=== PATIENT | female | born 1985 | race Caucasian/White ===

== ENCOUNTER 2020-11-29 07:50 | Emergency (ER) | payer OTHER ==
[~2020-11-29] VITALS: Ht 157.5 cm; Wt 99.8 kg
[~2020-11-29 07:50] MED LIST: CEPH500C16 PO; PREN-234 PO
[2020-11-29 07:54] VITALS: BP 138/83
--- NOTE | 2020-11-29 07:59 | NUR ---
PT AMBULATED TO BED 04.
[2020-11-29] MEDS ORDERED: ONDANSETRON 4 MG/2 ML VIAL IVP ONE (08:05)
[2020-11-29] MEDS ORDERED: NACL 0.9% 1,000 ML IV SCH (08:05)
--- NOTE | 2020-11-29 08:15 | NUR ---
PROVIDER AT BEDSIDE.
--- NOTE | 2020-11-29 08:15 | NUR ---
35Y/O FEMALE BIB SELF FOR C/C OF LLQ ABD PAIN THAT RADIATES TO THE LOWER BACK X3 DAYS AGO. C/O FEVER OF 102 LAST NIGHT. PT C/O NAUSEA BUT DENIES VOMITTING. SNEEZING AND COUGHING AGGREVATES ABD PAIN. LMP 07/16/2020 PT REPORTS MENSTRUAL IRREGLARITY NORMAL. DENIES VAGINAL PUSS AND DISCHARGE. HCG TEST WAS NEGATIVE. TTP ON LLQ. BED LOCKED AND LOWERED TO LOWEST POSITIONN, SIDE RAIL X1. 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 NKA PMH: HTN, HYPERLIPIDEMIA, DIVERTICULITIS RX: ATORVASTATIN, HTN RX SURGICAL HX: 2013
[2020-11-29 08:25] LABS: BASOPHILS % (AUTO) 0.3 % (0.0-2.0); EOSINOPHILS # (AUTO) 0.1 K/uL (0-0.4); EOSINOPHILS % (AUTO) 0.6 % (0.0-4.0); HEMATOCRIT 42.3 % (36-48); HEMOGLOBIN 14.2 g/dL (12.0-16.0); LYMPHOCYTES # (AUTO) 2.6 K/uL (2.5-16.5); LYMPHOCYTES % (AUTO) 21.4 % (20.5-51.1); MEAN CORPUSCULAR HEMOGLOBIN 28 pg (27-31); MEAN CORPUSCULAR HGB CONC 34 g/dL (33-37); MEAN CORPUSCULAR VOLUME 83.2 fL (80-94); MONOCYTES # (AUTO) 0.4 K/uL (0.8-1.0); MONOCYTES % (AUTO) 3.6 % (1.7-9.3); NEUTROPHILS # (AUTO) 8.9 K/uL (1.8-7.7); NEUTROPHILS % (AUTO) 74.1 % (42.2-75.2); PLATELET COUNT (AUTO) 274 K/uL (140-450); RED BLOOD CELL COUNT(AUTO) 5.08 MIL/uL (4.20-5.40); RED CELL DISTRIBUTION WIDTH 13.7 % (11.6-13.7)
[2020-11-29] MEDS ORDERED: KETOROLAC 15 MG/ML VIAL IVP ONE (08:25)
--- NOTE | 2020-11-29 08:41 | NUR ---
US AT BEDSIDE.
--- NOTE | 2020-11-29 08:45 | NUR ---
CT WITH CONTRAST CONSENT OBTAINED.
[2020-11-29 08:54] LABS: ALBUMIN 3.9 g/dL (3.4-5.0); ANION GAP 14.5 (8-16); CREATININE 0.7 mg/dL (0.6-1.3); POTASSIUM 3.5 mmol/L (3.5-5.1)
[2020-11-29 08:58] LABS: APPEARANCE,URINE CLEAR (CLEAR); BILIRUBIN,URINE NEGATIVE (NEGATIVE); BLOOD, URINE TRACE-I (NEGATIVE); COLOR,URINE YELLOW (YELLOW); LEUKOCYTE ESTERASE ,URINE NEGATIVE (NEGATIVE); NITRITE, URINE NEGATIVE (NEGATIVE); UGLUCOSE NEGATIVE (NEGATIVE)
[2020-11-29 09:06] LABS: TOTAL BILIRUBIN 1.2 mg/dL (0.0-1.0)
--- NOTE | 2020-11-29 09:17 | NUR ---
CALLED CT TO LET THEM KNOW PT IS READY FOR CT WITH CONTRAST EXAM OF THE ABD.
--- NOTE | 2020-11-29 09:23 | NUR ---
PT WENT TO CT VIA [facility].
--- NOTE | 2020-11-29 09:45 | NUR ---
PT BACK FROM CT, C/O UNCHANGING PAIN 01/20. PT REPORTS THE PAIN IS SHARP IN LLQ, DULL IN LLQ. PT REQUESTED MORE PAIN MEDICATION, ER MD NOTIFIED.
[2020-11-29] MEDS ORDERED: MORPHINE SULFATE 4 MG/ML SYR IVP ONE (09:50)
--- NOTE | 2020-11-29 10:30 | NUR ---
PT NEEDS MET AT THIS TIME, CALL LIGHT IN REACH. BED LOCKED IN LOWEST POSITION, BED RAIL X1. PT STATES PAIN HAS REDUCED FROM 5 TO 3. 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
[2020-11-29] MEDS ORDERED: ONDA4TAB PO (10:55)
[2020-11-29] MEDS ORDERED: AMOX-1000 PO (10:55)
[2020-11-29] MEDS ORDERED: ACET-8386 PO (10:55)
[2020-11-29] MEDS ORDERED: AMOXIL/CLAVULANATE 875/125 MG 1 TAB PO ONE (10:55)
[2020-11-29 11:23] VITALS: BP 120/78
--- NOTE | 2020-11-29 11:23 | NUR ---
Patient discharged with v/s stable. Written and verbal after care instructions given and explained. Patient alert, oriented and verbalized understanding of instructions. Ambulatory with steady gait. All questions addressed prior to discharge. ID band removed. Patient advised to follow up with PMD. Rx of NORCO AND AUGMENTIN, ZOFRAN given. Patient educated on indication of medication including possible reaction and side effects. Opportunity to ask questions provided and answered.
== END 2020-11-29 11:23 | disposition home or self-care (01) ==
LOC: MED 07:50
DX: K57.20 Diverticulitis of large intestine with perforation and abscess without bleeding (principal); N92.6 Irregular menstruation, unspecified; I10 Essential (primary) hypertension; E78.00 Pure hypercholesterolemia, unspecified
CPT/HCPCS: 36415; 74177; 76830; 76856; 80053; 81003; 81025; 83690; 84702; 85025; 96361; 96374; 96375; 99285; J1885; J2270; J2405; J7030; Q9967

== ENCOUNTER 2023-01-28 10:21 | Emergency (ER) | payer OTHER ==
[~2023-01-28] VITALS: Ht 160 cm; Wt 101.6 kg
[~2023-01-28 10:21] MED LIST changes: +ACET-8905 PO; +AMOX-1000 PO; +ONDA4TAB PO
[2023-01-28 10:29] VITALS: BP 132/91
--- NOTE | 2023-01-28 10:44 | NUR ---
AMBULATED TO BED IN NO DISTRESS.
[2023-01-28] MEDS ORDERED: NACL 0.9% 2,000 ML IV SCH (11:10)
[2023-01-28 11:29] LABS: BASOPHILS # (AUTO) 0.1 K/uL (0.00-0.22); BASOPHILS % (AUTO) 0.6 % (0.0-2.0); EOSINOPHILS # (AUTO) 0.1 K/uL (0-0.4); EOSINOPHILS % (AUTO) 0.9 % (0.0-4.0); HEMATOCRIT 40.6 % (36-48); HEMOGLOBIN 13.6 g/dL (12.0-16.0); LYMPHOCYTES # (AUTO) 2.4 K/uL (2.5-16.5); LYMPHOCYTES % (AUTO) 26.7 % (20.5-51.1); MEAN CORPUSCULAR HEMOGLOBIN 28 pg (27-31); MEAN CORPUSCULAR HGB CONC 34 g/dL (33-37); MEAN CORPUSCULAR VOLUME 83.3 fL (80-94); MONOCYTES # (AUTO) 0.4 K/uL (0.8-1.0); MONOCYTES % (AUTO) 4.2 % (1.7-9.3); NEUTROPHILS # (AUTO) 6.2 K/uL (1.8-7.7); NEUTROPHILS % (AUTO) 67.6 % (42.2-75.2); PLATELET COUNT (AUTO) 218 K/uL (140-450); RED BLOOD CELL COUNT(AUTO) 4.87 MIL/uL (4.20-5.40); RED CELL DISTRIBUTION WIDTH 14.3 % (11.6-13.7); WHITE BLOOD COUNT (AUTO) 9.1 K/uL (4.8-10.8)
[2023-01-28 11:35] LABS: APPEARANCE,URINE CLEAR (CLEAR); BILIRUBIN,URINE NEGATIVE (NEGATIVE); BLOOD, URINE TRACE-I (NEGATIVE); COLOR,URINE YELLOW (YELLOW); LEUKOCYTE ESTERASE ,URINE NEGATIVE (NEGATIVE); NITRITE, URINE NEGATIVE (NEGATIVE); UGLUCOSE NEGATIVE (NEGATIVE)
[2023-01-28 11:46] LABS: ALBUMIN 3.4 g/dL (3.4-5.0); ANION GAP 11.5 (8-16); ASPARTATE AMINOTRANSFERASE 14 U/L (15-37); CHLORIDE 102 mmol/L (98-107); CREATININE 0.7 mg/dL (0.6-1.3); GFR ARICAN-AMERICAN 122 mL/min (>90); GLUCOSE 164 mg/dL (74-106); POTASSIUM 3.5 mmol/L (3.5-5.1); SODIUM SERUM 139 mmol/L (136-145); UREA NITROGEN, BLOOD 10 mg/dL (7-18)
--- NOTE | 2023-01-28 12:15 | NUR ---
PT TO CT SCAN ABD/PELVIS WITH CONTRAST. VSS. NAD NOTED. WILL CONT TO MONITOR UPON RETURN.
[2023-01-28] MEDS ORDERED: ONDANSETRON 4 MG/2 ML VIAL IVP ONE (12:35)
[2023-01-28] MEDS ORDERED: MORPHINE SULFATE 4 MG/ML SYR IVP ONE (12:35)
[2023-01-28 12:43] LABS: RBC,URINE 0-5 /HPF (0-5)
[2023-01-28 12:44] LABS: CALCIUM OXALATE CRYSTALS,UR None Seen /HPF (None Seen); FINE GRANULAR CASTS,URINE None Seen /LPF (None Seen); HYALINE CASTS, URINE None Seen /LPF (None Seen); OTHER CASTS, URINE None Seen /LPF (None Seen); OTHER CRYSTALS,URINE None Seen /HPF (None Seen); RED BLOOD CELL CASTS,URINE None Seen /LPF (None Seen); TRICHOMONAS,URINE None Seen /HPF (None Seen); TRIPLE PHOSPHATE CRYSTAL,UR None Seen /HPF (None Seen); WAXY CASTS,URINE None Seen /LPF (None Seen); YEAST,URINE None Seen /HPF (None Seen)
[2023-01-28] MEDS ORDERED: AMOX-1230 PO (14:11)
[2023-01-28 15:04] VITALS: BP 126/84
--- NOTE | 2023-01-28 15:05 | NUR ---
Patient discharged with v/s stable. Written and verbal after care instructions given and explained. Patient alert, oriented and verbalized understanding of instructions. Ambulatory with steady gait. All questions addressed prior to discharge. ID band removed. Patient advised to follow up with PMD. Rx of AMOXICLAV given. Patient educated on indication of medication including possible reaction and side effects. Opportunity to ask questions provided and answered.
== END 2023-01-28 15:05 | disposition home or self-care (01) ==
LOC: MED 10:21
DX: K57.92 Diverticulitis of intestine, part unspecified, without perforation or abscess without bleeding (principal); I10 Essential (primary) hypertension; Z79.899 Other long term (current) drug therapy; Z98.890 Other specified postprocedural states
CPT/HCPCS: 36415; 71045; 74177; 80053; 81001; 81003; 81025; 83605; 84484; 85025; 87040; 87086; 93005; 96361; 96374; 96375; 99285; J2270; J2405; J7030; Q0092; Q9967